=== PATIENT | female | born 1990 | race Caucasian/White ===

== ENCOUNTER 2021-10-25 15:02 | Emergency (ER) | payer MEDICAID ==
[~2021-10-25] VITALS: Ht 157.5 cm; Wt 65.9 kg
[2021-10-25] MEDS ORDERED: oxyCODONE/APAP 10/325mg tablet PO ONE ×2 (16:05→17:10)
[2021-10-25 17:42] VITALS: BP 123/65
== END 2021-10-25 17:43 | disposition home or self-care (01) ==
LOC: ER 15:02
DX: F11.23 Opioid dependence with withdrawal (principal); R11.0 Nausea; R19.7 Diarrhea, unspecified
CPT/HCPCS: 93005; 99283